=== PATIENT | female | born 1950 | race Caucasian/White ===

== ENCOUNTER 2020-04-02 06:14 | Outpatient (CLI) | payer MEDICARE, SELFPAY ==
[2020-04-02 17:27] LABS: SARS-CoV-2 RNA PCR Negative
== END 2020-04-02 06:15 | disposition home or self-care (01) ==
LOC: ANHCOVIDDT 06:15
PROVIDERS: PCP Internal Medicine Geriatric Medicine; Visit Provider Surgery Plastic and Reconstructive Surgery
DX: Z01.812 Encounter for preprocedural laboratory examination (principal); Z11.59 Encounter for screening for other viral diseases
CPT/HCPCS: 87635; C9803; U0003

== ENCOUNTER 2020-04-05 02:59 | Day surgery (SDC) | payer MEDICARE, SELFPAY ==
[2020-03-24 14:45] VITALS: BMI 25.4
[2020-04-05] VITALS (9 sets, daily range): BP systolic 109–143; BP diastolic 53–77; PULSE 62–72; RESP 10–19; TEMP 35.6–36.8; O2SAT 92–99; BMI 25.6
[2020-04-05] MEDS: LACTATED RINGERS 1,000 ML 30 ML IV CONT (11:34)
--- NOTE | 2020-04-05 11:48 | WPDHPUPDATE1 ---
History and Physical Update Update Date/Time: 04/05/20 11:48 History and Physical has been reviewed, including an updated exam of the patient. There are NO changes in the patient's condition. Risks, benefits, and alternatives have been discussed and questions answered. Patient agrees to proceed with procedure.
--- NOTE | 2020-04-05 12:10 | PM.PROC ---
Procedure Note - Detailed Date of procedure: 04/05/20 Pre-op diagnosis: RT CARPAL TUNNEL, MASS RT DORSAL WEB SPACE Post-op diagnosis: same Procedure performed: 1. Right OCTR 2. Excision right first webspace mass 0.7cm in size. Description of procedure: Patient was marked in the preoperative holding area with their verification. The mass in the 1st web space appeared to be more fix than previously. We discussed the options of imaging versus just proceeding. She would like proceed and understands there is always the chance she will need additional procedures or may not be able to remove the mass. Taken to the operating room placed supine on operating room table. Anesthesia provided by anesthesiology and prepped and draped in standard sterile fashion. Surgical time-out was taken. 1% lidocaine and 0.25% Marcaine with epinephrine was used anesthetize locally. Esmarch was used to exsanguinate the arm and tourniquet inflated to 250 mmHg. Fifteen blade used to make an incision just ulnar to the palmaris longus tendon location. Dissection was continued down until the transverse carpal ligament was identified and this was completely released under direct visualization with no evidence of neurovascular or tendon injury.I closed with horizontal mattress 4-0 nylon. A 15 blade used to make an incision over the mass in the 1st dorsal webspace. Dissection was continued down and the mass was identified. This was gray colored thickened material superficial to the adductor aponerosis. This was sent to pathology. On examination it was clear this was the mass of concern as it had resolved. [place] released. Verified hemostasis. Closed with 5-0 Nylon. Xeroform fluffs and a lightly applied Newton were used for final dressing. Surgeon: Eliceo Alva MD Estimated blood loss (mL): 1 Drains: No Packing: No Pathology: yes (Right first dorsal webspace mass.) Complications: No immediate complications Condition: stable Disposition: PACU
--- NOTE | 2020-04-05 12:16 | WPDANESEPPF ---
Anes - Initial Pre Proc Eval Procedure: Operation Date: 04/05/20 13:00 Proposed Procedures p Right Open Carpal Tunnel Release - Eliceo Alva MD s Excision Mass Right First Dorsal Web Space - Eliceo Alva MD Date/Time: 04/05/20 12:16 Surgeon: Eliceo Alva MD Pre Op Diagnosis: RT CARPAL TUNNEL, MASS RT DORSAL WEB SPACE Patient Data Age: 69 Gender: F Height: 4 ft 11 in Weight: 57.5 kg Allergies Allergy/AdvReac Type Severity Reaction Status Date / Time Sulfa (Sulfonamide Allergy Unknown Redness of Verified 04/05/20 11:18 Antibiotics) Skin Home Medications Medication Instructions Recorded Confirmed Type escitalopram oxalate 10 mg tablet 15 mg PO DAILY tablet 03/02/20 04/05/20 History Bifidobacterium infantis [Align] 4 mg PO DAILY 03/24/20 04/05/20 History calcium-vitamin D3-vitamin K 1 tablet PO DAILY 03/24/20 04/05/20 History [Viactiv] kglcdnxl-ktr-yath-folic-vit K1 1 tablet PO DAILY 03/24/20 04/05/20 History [Centrum Chewables] Patient hx anesthesia problems: none Family hx anesthesia problems: none [facility] Past Medical History Medical History (Updated 04/05/20 @ 12:17 by Jah Rosa MD) Anxiety Arthritis Social History Social History Smoking status: Never smoker Alcohol intake: never Anes - Eval Final PreProcedure Day of Procedure 04/05/20 12:16 Patient weight: normal Heart: regular rate and rhythm Lungs: clear to auscultation Airway: Mallampati scale class 1 Neurological: alert and oriented Last oral intake: >/= 8 hours ASA classification: II Emergent: no Anesthetic plan: proceed Anesthesia type and monitoring: general GIVS and standard monitoring Informed Consent: The patient's anesthetic plan and its attendant risks and benefits were discussed with the patient/family/POA. Questions were solicited and answers provided to the satisfaction of the patient/family/POA.
[2020-04-05] MEDS: ceFAZolin 2 GM/D5W 50 ML 2 GM/50 ML BAG IVPB (12:34)
[2020-04-05] MEDS: LIDO 1%/EPINEPHRINE 1:100,000 20 ML VIAL INFILTRATE (13:01)
--- NOTE | 2020-04-05 14:43 | SUR.PHASEII ---
[id number] pt moved to op recovery into room #17
--- NOTE | 2020-04-05 16:18 | SUR.PHASEII ---
1430 to 1550 pt was being charted under faiza landa rn, instead of the actual nurse taking care of pt, romina pace rn.
== END 2020-04-05 15:20 | disposition home or self-care (01) ==
PROVIDERS: PCP Internal Medicine Geriatric Medicine; Visit Provider Surgery Plastic and Reconstructive Surgery
PROC: (CPT 64721; principal; 2020-04-05 13:00)
PROC: (CPT 64721; 2020-04-05 13:00)
DX: G56.01 Carpal tunnel syndrome, right upper limb (principal); M79.89 Other specified soft tissue disorders
CPT/HCPCS: 64721; 26115; 88304; J0690; J1100; J2250; J2370; J2405; J2704; J3010; J7120

== ENCOUNTER 2021-12-14 03:02 | Day surgery (SDC) | payer MEDICARE, SELFPAY ==
[2021-12-01 15:16] VITALS: BMI 25.8
--- NOTE | 2021-12-13 13:30 | WPDGICN ---
Assessment and Plan Assessment and plan (1) Diverticulitis: Code(s): K57.92 - Diverticulitis of intestine, part unspecified, without perforation or abscess without bleeding Status: Acute Assessment and Plan: Colonoscopy with possible biopsy or polypectomy or cautery or injection of substances. GI Consult Note Consult date/time: 12/13/21 13:30 HPI: Julee Easley is a 71 year old female referred for colonoscopy to investigate recent lower abdominal and pelvic pain which was suggestive of diverticulitis. She had been given a course of antibiotics, metronidazole which was helpful. she has a family history of colon cancer, her mother Review of Systems Review of Systems: All systems reviewed & are unremarkable except as noted in HPI and below PMFSH Past Medical History Medical History Anxiety Arthritis Social History Social History Smoking status: Never smoker Alcohol intake: current Substance use: never Living arrangements: with family Spiritual care concerns: No Meds Home Medications and Allergies Home Medications Medication Instructions Recorded Confirmed Type escitalopram oxalate 10 mg tablet 15 mg PO DAILY tablet 03/02/20 12/01/21 History calcium-vitamin D3-vitamin K 1 tablet PO DAILY 03/24/20 12/01/21 History [Viactiv] Florastor 1 cap BYMOUTH DAILY 12/01/21 12/01/21 History Vitafusion 1 cap PO DAILY 12/01/21 12/01/21 History ergocalciferol (vitamin D2) 1,250 mcg PO WEEKLY 12/01/21 12/01/21 History [Vitamin D2] Allergies Allergy/AdvReac Type Severity Reaction Status Date / Time Sulfa (Sulfonamide Allergy Intermediate Redness of Verified 12/14/21 09:02 Antibiotics) Skin Exam Const: General: alert Orientation/consciousness: patient oriented x3 Resp: Auscultation: clear to auscultation bilaterally Cardio: Rhythm: regular rhythm GI: GI Palp: Yes Soft to palpation and No Tenderness to palpation present (GI) Neuro: General: patient oriented x3
[2021-12-14 09:03] VITALS: BP 152/67; PULSE 79; RESP 20; TEMP 36.7; O2SAT 97
[2021-12-14] MEDS: LACTATED RINGERS 1,000 ML 150 ML IV CONT (09:08)
--- NOTE | 2021-12-14 09:25 | WPDANESEPPF ---
Anes - Initial Pre Proc Eval Procedure: Operation Date: 12/14/21 10:00 Proposed Procedures p Colonoscopy - David Marcial MD Date/Time: 12/14/21 09:25 Surgeon: David Marcial MD Pre Op Diagnosis: diverticulitis Patient Data Age: 71 Gender: F Height: 1.5 m Weight: 57.4 kg Last Vital Signs Temp 36.7 C 12/14/21 09:03 Pulse 79 12/14/21 09:03 Resp 20 12/14/21 09:03 BP 152/67 H 12/14/21 09:03 Pulse Ox 97 12/14/21 09:03 Allergies Allergy/AdvReac Type Severity Reaction Status Date / Time Sulfa (Sulfonamide Allergy Intermediate Redness of Verified 12/14/21 09:02 Antibiotics) Skin Home Medications Medication Instructions Recorded Confirmed Type escitalopram oxalate 10 mg tablet 15 mg PO DAILY tablet 03/02/20 12/01/21 History calcium-vitamin D3-vitamin K 1 tablet PO DAILY 03/24/20 12/01/21 History [Viactiv] Florastor 1 cap BYMOUTH DAILY 12/01/21 12/01/21 History Vitafusion 1 cap PO DAILY 12/01/21 12/01/21 History ergocalciferol (vitamin D2) 1,250 mcg PO WEEKLY 12/01/21 12/01/21 History [Vitamin D2] Patient hx anesthesia problems: none Family hx anesthesia problems: none Results Review: All pre-operative results and documents have been reviewed as part of the pre-operative evaluation. [facility] Past Medical History Medical History Anxiety Arthritis Social History Social History Smoking status: Never smoker Alcohol intake: current Substance use: never Living arrangements: with family Spiritual care concerns: No Anes - Eval Final PreProcedure Day of Procedure 12/14/21 09:25 Patient weight: normal Heart: regular rate and rhythm Lungs: clear to auscultation Airway: Mallampati scale class 1 Neurological: alert and oriented Last oral intake: >/= 8 hours ASA classification: II Emergent: no Anesthetic plan: proceed Anesthesia type and monitoring: general GIVS and standard monitoring Results Review: All pre-operative results and documents have been reviewed as part of the pre-operative evaluation. Informed Consent: The patient's anesthetic plan and its attendant risks and benefits were discussed with the patient/family/POA. Questions were solicited and answers provided to the satisfaction of the patient/family/POA.
[2021-12-14 10:30] VITALS: BP 90/49; PULSE 62; RESP 16; O2SAT 95
[2021-12-14 10:40] VITALS: BP 113/56; PULSE 67; RESP 16; O2SAT 100
[2021-12-14 10:50] VITALS: BP 127/75; PULSE 67; RESP 20; O2SAT 99
== END 2021-12-14 10:58 | disposition home or self-care (01) ==
PROVIDERS: PCP Internal Medicine Geriatric Medicine; Visit Provider Internal Medicine Gastroenterology
PROC: 0DJD8ZZ Inspection of Lower Intestinal Tract, Via Natural or Artificial Opening Endoscopic (ICD-10-PCS; CPT 45378; principal; 2021-12-14 10:00)
DX: K57.30 Diverticulosis of large intestine without perforation or abscess without bleeding (principal); Z80.0 Family history of malignant neoplasm of digestive organs; F41.9 Anxiety disorder, unspecified
CPT/HCPCS: 45378; J2704; J7120